=== PATIENT | female | born 1940 | race Caucasian/White ===

== ENCOUNTER 2021-12-19 07:59 | Day surgery (SDC) | payer MEDICARE ==
[~2021-12-19] VITALS: Ht 152.4 cm; Wt 51.0 kg
[2021-12-19] MEDS ORDERED: SPIRIVA RE2.5 MCG/Ac IH (08:42)
[2021-12-19] MEDS ORDERED: OMEGA-31 SGL PO (08:43)
[2021-12-19] MEDS ORDERED: WOMEN'S DAILY1 TAB PO (08:43)
[2021-12-19] MEDS ORDERED: RIBOFLAVIN100 MG PO (08:44)
[2021-12-19] MEDS ORDERED: VITAMIN D 400400 IU PO (08:45)
[2021-12-19 08:48] VITALS: BP 171/71; PULSE 76; TEMP 97.2
[2021-12-19 10:45] VITALS: BP 154/72; PULSE 72
--- NOTE | 2021-12-19 10:45 | NUR ---
Patient returns to room 5 per cart and ambulates from the cart to bathroom with two person assist. IV fluids infusing. Alert and denies abdominal pain or nausea. Voids and ambulates to bay 5. IV to INT. Sipping on water. Spouse in room. Call light in reach.
[2021-12-19 11:00] VITALS: BP 153/71; PULSE 72
--- NOTE | 2021-12-19 11:00 | NUR ---
Dr. Carlos in the room and talks with the patient. All questions answered. INT discontinued and patient dresses self.
--- NOTE | 2021-12-19 11:10 | NUR ---
Dismissal instructions given and signed. Voices understanding of these.
--- NOTE | 2021-12-19 11:13 | NUR ---
Patient dismissed to home driven by spouse per private vehicle and taken to the front door per wheelchair and assisted into car with dismissal instructions in hand.
== END 2021-12-19 11:13 | disposition home or self-care (01) ==
LOC: SDCO 07:59
DX: K63.5 Polyp of colon (principal); K57.30 Diverticulosis of large intestine without perforation or abscess without bleeding; F17.210 Nicotine dependence, cigarettes, uncomplicated
CPT/HCPCS: J2704; J7120

== ENCOUNTER → 2022-02-20 | Outpatient (CLI) | payer MEDICARE ==
[~2022-02-20] MED LIST: FOSAMAX 70MG TA70 MG PO; OMEGA-31 SGL PO; OSCAL 500 TAB500 MG PO; RIBOFLAVIN100 MG PO; SPIRIVA RE2.5 MCG/Ac IH; VITAMIN D 400400 IU PO; WOMEN'S DAILY1 TAB PO
== END ==
LOC: MC.RAD 12:40
DX: N63.20 Unspecified lump in the left breast, unspecified quadrant (principal)